=== PATIENT | male | born 1960 | race Caucasian/White ===

== ENCOUNTER 2020-09-09 11:58 | Emergency (ER) | payer OTHER ==
[2020-09-09] MEDS ORDERED: DEXAMETHASONE SOD PHOSPHATE 10 MG/ML 1 ML VIAL IM STA (12:56)
[2020-09-09] MEDS ORDERED: ACETAMINOPHEN TAB 500 MG TAB PO STA (12:56)
[2020-09-09] MEDS ORDERED: IBUPROFEN 800 MG TAB PO STA (12:56)
[2020-09-09] MEDS ORDERED: IPRATROPIUM-ALBUTEROL 3 ML NEB INHALATION STA (12:56)
--- NOTE | 2020-09-09 13:09 | ED ---
URI HPI - General Chief Complaint: Upper Respiratory Infection Stated Complaint: bronchitis Time Seen by Provider: 09/09/20 12:19 Source: patient, RN notes reviewed, old records reviewed Mode of arrival: ambulatory Limitations: no limitations - History of Present Illness Initial Comments: This is a 60-year-old male to the ER for evaluation patient to DF for evaluation regards to cough or congestion with history of smoking. Patient states he gets he symptoms about once a year that is similar to his normal. About a day and a half of cough congestion or shortness of breath no fevers no sick contacts no travel history. No history of heart disease no recent consultations. Patient denies any pain at all. Patient's coughing up phlegm, not discolored MD Complaint: cough -: days(s) Severity: mild Severity scale (1-10): 2 Consistency: intermittent Improves With: nothing Worsens With: nothing Context: sick contacts Associated Symptoms: denies other symptoms - Related Data Home Medications Medication Instructions Recorded Confirmed Aspirin 81 mg PO DAILY 10/02/15 10/02/15 Previous Rx's Medication Instructions Recorded Cephalexin [Keflex] 250 mg PO Q6HR 5 Days day 10/02/15 Allergies Allergy/AdvReac Type Severity Reaction Status Date / Time Penicillins Allergy Rash/Hives Verified 09/09/20 12:16 Review of Systems ROS Statement: Those systems with pertinent positive or pertinent negative responses have been documented in the HPI. ROS Other: All systems not noted in ROS Statement are negative. Past Medical History Past Medical History: Cancer, Hypertension Additional Past Medical History / Comment(s): cellulitis History of Any Multi-Drug Resistant Organisms: None Reported Past Surgical History: Hernia Repair Past Psychological History: No Psychological Hx Reported Smoking Status: Current every day smoker Past Alcohol Use History: Rare Past Drug Use History: None Reported General Exam Limitations: no limitations General appearance: alert, in no apparent distress Head exam: Present: atraumatic, normocephalic, normal inspection Eye exam: Present: normal appearance, PERRL, EOMI. Absent: scleral icterus, conjunctival injection, periorbital swelling ENT exam: Present: normal exam, mucous membranes moist Neck exam: Present: normal inspection. Absent: tenderness, meningismus, lymphadenopathy Respiratory exam: Present: normal lung sounds bilaterally. Absent: respiratory distress, wheezes, rales, rhonchi, stridor Cardiovascular Exam: Present: regular rate, normal rhythm, normal heart sounds. Absent: systolic murmur, diastolic murmur, rubs, gallop, clicks GI/Abdominal exam: Present: soft, normal bowel sounds. Absent: distended, tenderness, guarding, rebound, rigid Extremities exam: Present: normal inspection, full ROM, normal capillary refill. Absent: tenderness, pedal edema, joint swelling, calf tenderness Back exam: Present: normal inspection Neurological exam: Present: alert, oriented X3, CN II-XII intact Psychiatric exam: Present: normal affect, normal mood Skin exam: Present: warm, dry, intact, normal color. Absent: rash Course Vital Signs 09/09/20 12:13 Temperature 98.7 F Pulse Rate 81 Respiratory 20 Rate Blood Pressure 133/72 O2 Sat by Pulse 97 Oximetry - Reevaluation(s) Reevaluation #1: 09/09/20 13:17 Medical records reviewed Reevaluation #2: 09/09/20 13:17 Patient does feel significantly improved here in the ER Reevaluation #3: 09/09/20 14:12 Patient refuses breathing treatment here in the ER Reevaluation #4: 09/09/20 14:12 Patient informed of findings, questions answered, can be discharged home Medical Decision Making - Medical Decision Making 60 male DF for evaluation patient Dese for evaluation regards to cough and congestion some chills. Patient does have pneumonia on x-ray we'll discharge home - Radiology Data Radiology results: report reviewed (Chest x-rays negative for acute disease), image reviewed Disposition Clinical Impression: Acute bronchitis, Community acquired pneumonia Disposition: ADMITTED IP TO THIS HOSP Condition: Fair Is patient prescribed a controlled substance at d/c from ED?: No Referrals: Archana Bonilla MD [Primary Care Provider] - 1-2 days
--- NOTE | 2020-09-09 13:48 | XR ---
EXAMINATION TYPE: XR chest 2V DATE OF EXAM: 09/09/2020 COMPARISON: 04/07/2014 TECHNIQUE: PA and lateral views submitted. HISTORY: Cough FINDINGS: The lungs are clear and there is no pneumothorax, pleural effusion, or focal pneumonia. Coarsened i nterstitium. Heart size normal. Hypertrophic change of the spine. IMPRESSION: 1. Correlate for bronchitis or interstitial pneumonitis..
[2020-09-09] MEDS ORDERED: cefTRIAXone 250 MG VIAL IM STA (14:11)
[2020-09-09] MEDS ORDERED: AZITHROMYCIN 500 MG TAB PO STA (14:11)
[2020-09-09 14:56] VITALS: BP 136/75; PULSE 63; RESP 18; TEMP 99.7
== END 2020-09-09 14:57 | disposition other institution (70) ==
LOC: EC 11:58
DX: J20.9 Acute bronchitis, unspecified (principal); J18.9 Pneumonia, unspecified organism; F17.200 Nicotine dependence, unspecified, uncomplicated; Z79.82 Long term (current) use of aspirin; Z88.0 Allergy status to penicillin; Z85.9 Personal history of malignant neoplasm, unspecified
CPT/HCPCS: 71046; 99284; 96372 ×2; J1100; J0696

== ENCOUNTER 2021-02-19 15:21 | Emergency (ER) | payer OTHER ==
[2021-02-19 16:45] VITALS: BP 150/80; PULSE 79; RESP 18; TEMP 98.9
--- NOTE | 2021-02-19 16:49 | ED ---
URI HPI - General Chief Complaint: Upper Respiratory Infection Stated Complaint: body aches,cough Source: patient, RN notes reviewed Mode of arrival: ambulatory Limitations: no limitations - History of Present Illness Initial Comments: 60-year-old male presents emergency department with generalized muscle aches, runny nose, cough. Patient does note that he is a smoker. He did note that his tested positive for Covid last night so he came to get tested here today. He denied any other complaints or issues or pain she denied any chest pain shortness of breath headache nausea vomiting diarrhea constipation fever fatigue chills - Related Data Home Medications Medication Instructions Recorded Confirmed Aspirin 81 mg PO DAILY 10/02/15 10/02/15 Previous Rx's Medication Instructions Recorded Cephalexin [Keflex] 250 mg PO Q6HR 5 Days day 10/02/15 Albuterol Sulfate [Proair Hfa] 1 - 2 puff INHALATION Q4H PRN #1 09/09/20 inhaler Azithromycin [Zithromax Z-pack (6 0 mg PO DIRECTED #1 pack 09/09/20 tabs)] predniSONE 50 mg PO DAILY #5 tab 09/09/20 Allergies Allergy/AdvReac Type Severity Reaction Status Date / Time Penicillins Allergy Rash/Hives Verified 09/09/20 12:16 Review of Systems ROS Statement: Those systems with pertinent positive or pertinent negative responses have been documented in the HPI. ROS Other: All systems not noted in ROS Statement are negative. Past Medical History Past Medical History: Cancer, Hypertension Additional Past Medical History / Comment(s): cellulitis History of Any Multi-Drug Resistant Organisms: None Reported Past Surgical History: Hernia Repair Past Psychological History: No Psychological Hx Reported Smoking Status: Current every day smoker Past Alcohol Use History: Rare Past Drug Use History: None Reported General Exam Limitations: no limitations General appearance: alert, in no apparent distress Head exam: Present: atraumatic, normocephalic, normal inspection Eye exam: Present: normal appearance, PERRL, EOMI. Absent: scleral icterus, conjunctival injection, periorbital swelling Neck exam: Present: normal inspection. Absent: tenderness, meningismus, lymphadenopathy Respiratory exam: Present: normal lung sounds bilaterally, wheezes (Minimal w heezing and right upper lobe.). Absent: respiratory distress, rales, rhonchi, stridor Cardiovascular Exam: Present: regular rate, normal rhythm, normal heart sounds. Absent: systolic murmur, diastolic murmur, rubs, gallop, clicks GI/Abdominal exam: Present: soft, normal bowel sounds. Absent: distended, tenderness, guarding, rebound, rigid Extremities exam: Present: normal inspection, full ROM, normal capillary refill. Absent: tenderness, pedal edema, joint swelling, calf tenderness Neurological exam: Present: alert, oriented X3, CN II-XII intact Psychiatric exam: Present: normal affect, normal mood Skin exam: Present: warm, dry, intact, normal color. Absent: rash Course Vital Signs 02/19/21 16:40 Temperature 98.9 F Pulse Rate 79 Respiratory 18 Rate Blood Pressure 150/80 O2 Sat by Pulse 99 Oximetry Medical Decision Making - Medical Decision Making [id number] male with exposure to Covid. Chest x-ray and Covid swab ordered. Chest x-ray negative, Covid negative. Case discussed with Dr. Bingham patient to discharge home. - Lab Data Lab Results 02/19/21 Range/Units 16:48 Coronavirus (PCR) Detected A (Not Detectd) - Radiology Data Radiology results: report reviewed, image reviewed Chest x-ray: No acute cardiopulmonary process. Disposition Clinical Impression: Exposure to COVID-19 virus Disposition: HOME SELF-CARE Condition: Stable Instructions (If sedation given, give patient instructions): Upper Respiratory Infection (ED) Additional Instructions: Please return to the Emergency Department if symptoms worsen or any other concerns. Follow-up primary care in 3-5 days. Take [id number] anti-inflammatories for any fever in or muscle aches. Can take [id number]-jyhrllv vitamin such as vitamin C and zinc to help boost immune system. Is patient prescribed a controlled substance at d/c from ED?: No Referrals: Archana Bonilla MD [Primary Care Provider] - 1-2 days Time of Disposition: 18:17
--- NOTE | 2021-02-19 18:02 | XR ---
EXAMINATION TYPE: XR chest 2V DATE OF EXAM: 02/19/2021 COMPARISON: 09/09/2020 HISTORY: Cough and runny nose. Body aches. TECHNIQUE: 2 views FINDINGS: Heart is normal. Lungs are clear of infiltrate. There is no heart failure. There are no hil ar masses. Costophrenic angles are clear. Bony thorax is intact. IMPRESSION: No active cardiopulmonary disease. No change.
== END 2021-02-19 18:29 | disposition home or self-care (01) ==
LOC: EC 15:21
DX: U07.1 COVID-19 (principal); I10 Essential (primary) hypertension; F17.200 Nicotine dependence, unspecified, uncomplicated; Z88.0 Allergy status to penicillin; Z79.82 Long term (current) use of aspirin
CPT/HCPCS: 71046; 87635; 99283

== ENCOUNTER 2021-05-25 14:37 | Observation (INO) | payer OTHER ==
[2021-05-25] MEDS ORDERED: DILTIAZEM DRIP BOLUS FROM BAG 1 MG SOLN IV ONE (14:51)
--- NOTE | 2021-05-25 14:55 | ED ---
General Adult HPI - General Chief complaint: Arrhythmia/Palpitations Stated complaint: high heart rate Time Seen by Provider: 05/25/21 14:38 Source: patient, EMS, RN notes reviewed Mode of arrival: EMS Limitations: no limitations - History of Present Illness Initial comments: Patient is a pleasant 60-year-old male presenting to the emergency department with concerns for atrial fibrillation. Patient has been having some exertional dyspnea. Patient went to urgent care and was found to be tachycardic with concern for a 2 fibrillation. Patient denies history of similar symptoms previously. Patient states he has not seen his doctor in a while. Patient denies chest pain. No palpitations. No history of similar symptoms previously. - Related Data Home Medications Medication Instructions Recorded Confirmed Acetaminophen Tab [Tylenol Tab] 500 mg PO Q6H PRN 05/25/21 05/25/21 Allergies Allergy/AdvReac Type Severity Reaction Status Date / Time Penicillins Allergy Rash/Hives Verified 05/25/21 15:34 tramadol AdvReac Unknown Verified 05/25/21 15:34 Review of Systems ROS Statement: Those systems with pertinent positive or pertinent negative responses have been documented in the HPI. ROS Other: All systems not noted in ROS Statement are negative. Constitutional: Denies: fever Eyes: Denies: eye pain ENT: Denies: ear pain Respiratory: Reports: as per HPI, cough, dyspnea (With exertion) Cardiovascular: Denies: chest pain Endocrine: Reports: fatigue Gastrointestinal: Denies: abdominal pain Genitourinary: Denies: dysuria Musculoskeletal: Denies: back pain Skin: Denies: rash Neurological: Denies: weakness Past Medical History Past Medical History: Cancer, Hypertension Additional Past Medical History / Comment(s): cellulitis History of Any Multi-Drug Resistant Organisms: None Reported Past Surgical History: Hernia Repair Past Psychological History: No Psychological Hx Reported Smoking Status: Current every day smoker Past Alcohol Use History: Rare Past Drug Use History: None Reported General Exam Limitations: no limitations General appearance: alert, in no apparent distress Head exam: Present: normocephalic Eye exam: Present: normal appearance Neck exam: Present: normal inspection Respiratory exam: Present: normal lung sounds bilaterally Cardiovascular Exam: Present: tachycardia, irregular rhythm Expanded Peripheral pulses: 2+: Radial (R), Radial (L) GI/Abdominal exam: Present: soft. Absent: tenderness Extremities exam: Present: pedal edema. Absent: calf tenderness Neurological exam: Present: alert Psychiatric exam: Present: normal affect, normal mood Skin exam: Present: normal color Course Vital Signs 05/25/21 14:41 Temperature 99.2 F Pulse Rate 168 H Respiratory 19 Rate Blood Pressure 117/92 O2 Sat by Pulse 97 Oximetry EKG Findings - EKG Comments: EKG Findings:: A. fib with rate of 142. QRS 84. QT 302. QTC 464. Left axis. Normal QRS. Nonspecific ST-T. Medical Decision Making - Medical Decision Making Patient reevaluated and resting comfortably in bed. Heart rate remains 110 through 125) Cardizem drip. Patient placed on monitor secondary to atrophic relation to watch for arrhythmia. Patient and family updated on results and plan. Case was discussed in detail with Dr. Arriaga, covering Dr. Shin, who will admit. - Lab Data Result diagrams: 05/25/21 15:09 05/25/21 15:09 Lab Results 05/25/21 05/25/21 05/25/21 Range/Units 15:09 15:09 15:09 WBC 17.9 H (3.8-10.6) k/uL RBC 5.17 (4.30-5.90) m/uL Hgb 15.2 (13.0-17.5) gm/dL Hct 44.7 (39.0-53.0) % MCV 86.4 (80.0-100.0) fL MCH 29.4 (25.0-35.0) pg MCHC 34.1 (31.0-37.0) g/dL RDW 14.3 (11.5-15.5) % Plt Count 154 (150-450) k/uL MPV 7.3 Neutrophils % 21 % Lymphocytes % 71 % Monocytes % 3 % Eosinophils % 2 % Basophils % 1 % Neutrophils # 3.7 (1.3-7.7) k/uL Lymphocytes # 12.7 H (1.0-4.8) k/uL Monocytes # 0.6 (0-1.0) k/uL Eosinophils # 0.4 (0-0.7) k/uL Basophils # 0.1 (0-0.2) k/uL Manual Slide Review Performed RBC Morphology Normal PT 10.2 (9.0-12.0) sec INR 0.9 (<1.2) APTT 22.3 (22.0-30.0) sec Sodium 141 (137-145) mmol/L Potassium 4.6 (3.5-5.1) mmol/L Chloride 110 H (98-107) mmol/L Carbon Dioxide 23 (22-30) mmol/L Anion Gap 8 mmol/L BUN 23 H (9-20) mg/dL Creatinine 1.13 (0.66-1.25) mg/dL Est GFR (CKD-EPI)AfAm 82 (>60 ml/min/1.73 sqM) Est GFR (CKD-EPI)NonAf 71 (>60 ml/min/1.73 sqM) Glucose 117 H (74-99) mg/dL Calcium 9.8 (8.4-10.2) mg/dL Magnesium 2.0 (1.6-2.3) mg/dL Total Bilirubin 0.3 (0.2-1.3) mg/dL AST 21 (17-59) U/L ALT 15 (4-49) U/L Alkaline Phosphatase 68 (38-126) U/L Troponin I (0.000-0.034) ng/mL NT-Pro-B Natriuret Pep pg/mL Total Protein 6.8 (6.3-8.2) g/dL Albumin 4.3 (3.5-5.0) g/dL TSH 1.300 (0.465-4.680) mIU/L Free T4 0.79 (0.78-2.19) ng/dL Free T3 pg/mL 4.5 (2.8-5.3) pg/ml Coronavirus (PCR) (Not Detectd) 05/25/21 05/25/21 05/25/21 Range/Units 15:09 15:09 15:09 WBC (3.8-10.6) k/uL RBC (4.30-5.90) m/uL Hgb (13.0-17.5) gm/dL Hct (39.0-53.0) % MCV (80.0-100.0) fL MCH (25.0-35.0) pg MCHC (31.0-37.0) g/dL RDW (11.5-15.5) % Plt Count (150-450) k/uL MPV Neutrophils % % Lymphocytes % % Monocytes % % Eosinophils % % Basophils % % Neutrophils # (1.3-7.7) k/uL Lymphocytes # (1.0-4.8) k/uL Monocytes # (0-1.0) k/uL Eosinophils # (0-0.7) k/uL Basophils # (0-0.2) k/uL Manual Slide Review RBC Morphology PT (9.0-12.0) sec INR (<1.2) APTT (22.0-30.0) sec Sodium (137-145) mmol/L Potassium (3.5-5.1) mmol/L Chloride (98-107) mmol/L Carbon Dioxide (22-30) mmol/L Anion Gap mmol/L BUN (9-20) mg/dL Creatinine (0.66-1.25) mg/dL Est GFR (CKD-EPI)AfAm (>60 ml/min/1.73 sqM) Est GFR (CKD-EPI)NonAf (>60 ml/min/1.73 sqM) Glucose (74-99) mg/dL Calcium (8.4-10.2) mg/dL Magnesium (1.6-2.3) mg/dL Total Bilirubin (0.2-1.3) mg/dL AST (17-59) U/L ALT (4-49) U/L Alkaline Phosphatase (38-126) U/L Troponin I <0.012 (0.000-0.034) ng/mL NT-Pro-B Natriuret Pep 779 pg/mL Total Protein (6.3-8.2) g/dL Albumin (3.5-5.0) g/dL TSH (0.465-4.680) mIU/L Free T4 (0.78-2.19) ng/dL Free T3 pg/mL (2.8-5.3) pg/ml Coronavirus (PCR) Not Detected (Not Detectd) - Radiology Data Radiology results: image reviewed (Chest x-ray shows no acute process) Critical Care Time Critical Care Time: Yes Total Critical Care Time: 33 Disposition Clinical Impression: Atrial fibrillation with RVR Disposition: ADMITTED IP TO THIS HOSP Is patient prescribed a controlled substance at d/c from ED?: No Referrals: Archana Bonilla MD [Primary Care Provider] - 1-2 days Decision Time: 16:18
[2021-05-25] MEDS: DILTIAZEM 125 MG in SODIUM CHLORIDE 0.9% 100 ML IV SCH (15:15)
[2021-05-25 15:27] LABS: Basophils # (A) 0.1 k/uL (0-0.2); Basophils % (A) 1 %; Eosinophils # (A) 0.4 k/uL (0-0.7); Eosinophils % (A) 2 %; HCT 44.7 % (39.0-53.0); HGB 15.2 gm/dL (13.0-17.5); Lymphocytes # (A) 12.7 k/uL (1.0-4.8); Lymphocytes % (A) 71 %; MCH 29.4 pg (25.0-35.0); MCHC 34.1 g/dL (31.0-37.0); MCV 86.4 fL (80.0-100.0); Mean Platelet Volume 7.3; Monocytes # (A) 0.6 k/uL (0-1.0); Monocytes % (A) 3 %; Neutrophils # (A) 3.7 k/uL (1.3-7.7); Neutrophils % (A) 21 %; Platelet Count 154 k/uL (150-450); RBC 5.17 m/uL (4.30-5.90); RDW 14.3 % (11.5-15.5); WBC 17.9 k/uL (3.8-10.6)
[2021-05-25 15:35] LABS: Albumin 4.3 g/dL (3.5-5.0); Calcium 9.8 mg/dL (8.4-10.2); Potassium 4.6 mmol/L (3.5-5.1); Total Bilirubin 0.3 mg/dL (0.2-1.3); Total Protein 6.8 g/dL (6.3-8.2)
[2021-05-25 15:52] LABS: INR 0.9 (<1.2); Prothrombin Time 10.2 sec (9.0-12.0); T4, Free (Free Thyroxine) 0.79 ng/dL (0.78-2.19)
[2021-05-25 15:59] LABS: Partial Thromboplastin Time 22.3 sec (22.0-30.0)
--- NOTE | 2021-05-25 15:59 | XR ---
EXAMINATION TYPE: XR chest 2V DATE OF EXAM: 05/25/2021 COMPARISON: 02/19/2021 HISTORY: Shortness of breath TECHNIQUE: Frontal and lateral views of the chest are obtained. FINDINGS: Scattered senescent parenchymal changes noted. Hyperinflation compatible with COPD. No evidence for infiltrate. No evidence for atelectasis. Heart size is stable. Mediastinal structures are stable and grossly unremarkable. No evidence for hilar prominence. Degenerative changes dorsal spine. IMPRESSION: 1. No evidence for acute pulmonary disease.
[2021-05-25] MEDS ORDERED: ASPIRIN 81 MG PO STA (16:19)
[2021-05-25] MEDS ORDERED: HEPARIN SODIUM 1,000 UN/ML (10ML VL) IV ONE (16:19)
[2021-05-25] MEDS ORDERED: NITROGLYCERIN SL TABS 0.4 MG TAB SUBLINGUAL PRN (16:19)
[2021-05-25] MEDS: HEPARIN SOD,PORK IN 0.45% NACL 25,000 UNIT in 0.45% NACL 1 250ML.BAG IV SCH (17:37)
[2021-05-25 18:36] VITALS: RESP 18
[2021-05-25] MEDS ORDERED: ACETAMINOPHEN TAB 325 MG TAB PO PRN (21:35)
--- NOTE | 2021-05-26 | P.HPIM ---
History of Present Illness H&P Date: 05/25/21 Chief Complaint: Atrial fibrillation, Sent from urgent care clinic. Patient is a 60-year-old male with a known history of hypertension was sent to hospital from urgent care facility due to concern for atrial fibrillation. Patient and his went to urgent care facility to test for COVID-19 infection. Both had COVID-19 infection in January 2021 and went to recheck to make sure it is negative. Patient was found to be tachycardic while he was at urgent care facility and concern for atrial fibrillation. Patient was sent to ER for evaluation. Patient states that he has been having exertional dyspnea for the past 1 month. Also has been having on and off leg swelling. No complaints of chest pain or palpitations. No headache or dizziness or lightheadedness. No fever no chills. No cough or sputum production. No nausea vomiting or abdominal pain or diarrhea. No prior history of coronary disease. Chest x-ray showed no evidence for acute pulmonary disease. EKG showed atrial fibrillation with rapid regular rate with heart rate 142 Laboratory data showed WBC 17.9 hemoglobin 15.1 platelets 154 BUN 23 and creatinine 1.13 blood sugar is 117 Troponin x3 - proBNP 779 TSH level is 1.30 Coronavirus PCR not detected. Review of Systems Constitutional: Patient denies any fever or chills . generalized weakness. Abdomen: Patient denied nausea vomiting and diarrhea and abdominal pain. Cardiovascular: Patient denies any chest pain or short of breath no palpitations.Exertional dyspnea. Leg swelling on and off. Respiratory: patient denied any cough or sputum production. No shortness of breath Neurologic: Patient denied any numbness or tingling headache. Musculoskeletal: Patient denies any complaints of joint swelling or deformity. Skin: Negative Psychiatric: Negative Endocrine: No heat or cold intolerance. No recent weight gain. Genitourinary: No dysuria or hematuria. All other 14 point ROS negative except the above Past Medical History Past Medical History: Cancer, Hypertension Additional Past Medical History / Comment(s): cellulitis History of Any Multi-Drug Resistant Organisms: None Reported Past Surgical History: Hernia Repair Past Anesthesia/Blood Transfusion Reactions: No Reported Reaction Past Psychological History: No Psychological Hx Reported Smoking Status: Current every day smoker Past Alcohol Use History: Rare Past Drug Use History: None Reported Medications and Allergies Home Medications Medication Instructions Recorded Confirmed Type Acetaminophen Tab [Tylenol Tab] 500 mg PO Q6H PRN 05/25/21 05/25/21 History Allergies Allergy/AdvReac Type Severity Reaction Status Date / Time Penicillins Allergy Rash/Hives Verified 05/25/21 15:34 tramadol AdvReac Unknown Verified 05/25/21 15:34 Physical Exam Vitals: Vital Signs Temp Pulse Pulse Resp BP BP Pulse Ox 05/25/21 18:35 98.6 F 150 H 18 122/66 96 05/25/21 16:26 122 H 17 133/83 97 05/25/21 14:52 125 H 168 H 18 120/76 97 05/25/21 14:41 99.2 F 168 H 19 117/92 97 Intake and Output 05/25/21 05/25/21 05/25/21 06:59 14:59 22:59 Other: Weight 124.738 kg 124.738 kg PHYSICAL EXAMINATION: Patient is lying in the bed comfortably, no acute distress, awake alert and oriented.. HEENT: Normocephalic. Neck is supple. Pupils reactive. Nostrils clear. Oral cavity is moist. Neck reveals no JVD, carotid bruits, or thyromegaly. CHEST EXAMINATION: Trachea is central. Symmetrical expansion. Lung yanez clear to auscultation and percussion. CARDIAC: Normal S1, S2 with no gallops. No murmurs . irregular rhythm ABDOMEN: Soft. Bowel sounds normal. No organomegaly. No abdominal bruits. Extremities: trace edema. No clubbing or cyanosis Neurologically awake, alert, oriented x3 with well-coordinated movements. No focal deficits noted Skin: No rash or skin lesions. Psychiatric: Coperative. Nonsuicidal Musculoskeletal: No joint swelling or deformity. Normal range of motion. Results CBC & Chem 7: 05/25/21 15:09 05/25/21 15:09 Labs: Abnormal Lab Results - Last 24 Hours (Table) 05/25/21 05/25/21 Range/Units 15:09 15:09 WBC 17.9 H (3.8-10.6) k/uL Lymphocytes # 12.7 H (1.0-4.8) k/uL Chloride 110 H (98-107) mmol/L BUN 23 H (9-20) mg/dL Glucose 117 H (74-99) mg/dL Thrombosis Risk Factor Assmnt - DVT/VTE Prophylaxis DVT/VTE Prophylaxis: Pharmacologic Prophylaxis ordered - Choose All That Apply Each Factor Represents 1 point: Age 41-60 years, Obesity (BMI >25) Other Risk Factors: No Other congenital or acquired thrombophilia - If yes, enter type in comment: No Thrombosis Risk Factor Assessment Total Risk Factor Score: 2 Thrombosis Risk Factor Assessment Level: Low Risk Assessment and Plan Assessment: New onset atrial fibrillation with rapid lower rate Leukocytosis likely reactive. Hypertension controlled. Currently everyday smoker Recent history of COVID-19 infection in January 2021 Obesity with BMI 36.3 DVT prophylaxis. Plan: Patient will be continued on telemetry monitoring. Started on Cardizem drip and heparin drip. Cardiology was consulted. Rule out infection due to elevated WBC count. Continue to follow closely. Smoking cessation has been counseled. Time with Patient: Greater than 30
[2021-05-26 03:18] LABS: Basophils # (A) 0.1 k/uL (0-0.2); Basophils % (A) 1 %; Eosinophils # (A) 0.4 k/uL (0-0.7); Eosinophils % (A) 2 %; HCT 45.4 % (39.0-53.0); HGB 15.2 gm/dL (13.0-17.5); Lymphocytes % (A) 74 %; MCH 29.2 pg (25.0-35.0); MCHC 33.5 g/dL (31.0-37.0); MCV 87.2 fL (80.0-100.0); Mean Platelet Volume 7.2; Monocytes # (A) 0.6 k/uL (0-1.0); Monocytes % (A) 3 %; Neutrophils # (A) 3.7 k/uL (1.3-7.7); Neutrophils % (A) 18 %; Platelet Count 155 k/uL (150-450); RDW 14.8 % (11.5-15.5); WBC 20.7 k/uL (3.8-10.6)
[2021-05-26 03:24] LABS: Lymphocytes # (A) 15.3 k/uL (1.0-4.8)
[2021-05-26 03:29] LABS: African American GFR (CKD) >90 (>60 ml/min/1.73 sqM); Anion Gap 9 mmol/L; Blood Urea Nitrogen 20 mg/dL (9-20); Calcium 9.6 mg/dL (8.4-10.2); Carbon Dioxide 22 mmol/L (22-30); Chloride 109 mmol/L (98-107); Glucose 110 mg/dL (74-99); Non-African American GFR(CKD) 84 (>60 ml/min/1.73 sqM); Potassium 4.4 mmol/L (3.5-5.1); Sodium 140 mmol/L (137-145)
[2021-05-26] MEDS: ASPIRIN 325 MG TAB PO SCH (07:42)
[2021-05-26 10:17] LABS: Chol/HDL Ratio 5.35; Cholesterol 182 mg/dL (0-200)
[2021-05-26 12:35] LABS: Appearance,Urine Clear (Clear); Bilirubin,Urine Negative (Negative); Blood,Urine Negative (Negative); Color,Urine Yellow; Glucose,Urine (UA) Negative (Negative); Ketones,Urine Negative (Negative); Leukocyte Esterase,Urine Negative (Negative); Nitrite,Urine Negative (Negative); PH, Urine 5.5 (5.0-8.0); Protein,Urine Negative (Negative); Specific Gravity,Urine 1.031 (1.001-1.035); Urobilinogen,Urine <2.0 mg/dL (<2.0)
--- NOTE | 2021-05-26 12:49 | ECHOF ---
Referral Reason:AFib/ shortness of breath MEASUREMENTS -------- HEIGHT: 185.4 cm WEIGHT: 127.5 kg BP: 120/77 RVIDd: 3.6 cm (< 3.3) IVSd: 1.4 cm (0.6 - 1.1) LVIDd: 4.6 cm (3.9 - 5.3) LVPWd: 1.4 cm (0.6 - 1.1) IVSs: 1.8 cm LVIDs: 4.1 cm LVPWs: 1.6 cm LA Diam: 3.9 cm (2.7 - 3.8) LAESV Index (A-L): 26.99 ml/m Ao Diam: 3.4 cm (2.0 - 3.7) AV Cusp: 2.4 cm (1.5 - 2.6) MV EXCURSION: 19.783 mm (> 18.000) MV EF SLOPE: 123 mm/s (70 - 150) EPSS: 0.9 cm RAP: 5.00 mmHg RVSP: 25.25 mmHg FINDINGS -------- Atrial fibrillation. This was a technically difficult study with suboptimal apical views. The left ventricular size is normal. There is moderate concentric left ventricular hypertrophy. T here is mild global hypokinesis of LV . Overall left ventricular systolic function is mildly impair ed with, an EF between 45 - 50 %. The right ventricle is mildly enlarged. Normal LA size by volume 22+/-6 ml/m2. The right atrial size is normal. Interatrial and interventricular septum intact. The aortic valve is trileaflet, and appears structurally normal. No aortic stenosis or regurgitation. The mitral valve is normal. Mild mitral regurgitation is present. The tricuspid valve appears structurally normal. Mild tricuspid regurgitation present. Right vent ricular systolic pressure is normal at < 35 mmHg. Trace/mild (physiologic) pulmonic regurgitation. The aortic root size is normal. IVC Not well visulized. There is no pericardial effusion. CONCLUSIONS -------- 1. Atrial fibrillation. 2. There is moderate concentric left ventricular hypertrophy. 3. There is mild global hypokinesis of LV . 4. Overall left ventricular systolic function is mildly impaired with, an EF between 45 - 50 %. 5. The right ventricle is mildly enlarged. 6. Normal LA size by volume 22+/-6 ml/m2. 7. The aortic valve is trileaflet, and appears structurally normal. No aortic stenosis or regurgitati on. 8. Mild mitral regurgitation is present. 9. Mild tricuspid regurgitation present. 10. Trace/mild (physiologic) pulmonic regurgitation. 11. There is no pericardial effusion. BUSINESS CONTROLLER: More Evans RDCS
--- NOTE | 2021-05-26 13:53 | P.CRDCN ---
History of Present Illness Consult date: 05/26/21 Consult reason: atrial fibrillation History of present illness: The patient is a 60-year-old male with past medical history of hypertension, who presented to the hospital after being diagnosed with new onset of atrial fibrillation at urgent care. The patient and his presented to urgent care for COVID-19 testing. They state they needed negative test results before returning to work. Vital signs showed an elevated heart rate in the 150s, therefore EKG was performed. EKG showed A. fib with RVR in the 150s. The patient was interviewed and examined lying comfortably in bed. The patient's states he has been more fatigued and short of breath since their COVID-19 infection in the month of January. She states he does have some activity intolerance and if he works out in the yard for more than a half an hour he becomes quite labored. No chest pain or chest pressure. No palpitations, dizziness, or lightheadedness. DIAGNOSTICS: Laboratory data shows WBC 17.9, hemoglobin 15.2, hematocrit 44.7, platelet 154, sodium 141, potassium 4.6, BUN 23, creatinine 1.13, AST 21, ALT 15, troponins negative 3, BNP 779, triglycerides 160, LDL 116, TSH 1.3 Chest x-ray shows no acute cardiopulmonary disease Echocardiogram shows ejection fraction of 45% with global hypokinesis and moderate LVH PAST MEDICAL HISTORY: Hypertension REVIEW OF SYSTEMS: No fever or chills. No cough or expectoration. No diaphoresis. Patient denies headache, dizziness, blurred vision, double vision. Patient denies any stomach discomfort. No nausea, vomiting. No hematochezia. No hematemesis. Denies any black stools or blood in his stools. Denies dysuria or hematuria. No muscle weakness or numbness. No chest pain. Positive for shortness of breath with exertion PHYSICAL EXAMINATION: This is a 60 year-old male in no apparent distress at the time of my examination. HEENT: Head is atraumatic, normocephalic. Pupils are equal, round. Sclerae anicteric. Conjunctivae are clear. Mucous membranes of the mouth are moist. Neck is supple. There is no jugular venous distention. No carotid bruit is heard. CHEST EXAMINATION: Lungs are clear to auscultation. No chest wall tenderness is noted on palpation or with deep breathing. HEART EXAMINATION: Irregular rate and rhythm. S1, S2 heard. No murmurs, gallops or rub. ABDOMEN: Soft, nontender. Bowel sounds are heard. No organomegaly noted. EXTREMITIES: 2+ peripheral pulses. Mild peripheral edema and no calf tenderness noted. NEUROLOGIC EXAMINATION: Patient is awake, alert and oriented x3. FINAL ASSESSMENT AND PLAN: New onset of atrial fibrillation New onset cardiomyopathy, EF 45% with global hypokinesis and moderate LVH Obesity Dyslipidemia PLAN: Start metoprolol 50mg Start Eliquis 5 mg twice daily Start atorvastatin 20mg Wean off of Cardizem drip Reduce ASA to 81mg Further recommendations based on clinical course The patient has been seen and evaluated. Plan of care has been reviewed and agreed upon by Dr Aly. Past Medical History Past Medical History: Cancer, Hypertension Additional Past Medical History / Comment(s): cellulitis History of Any Multi-Drug Resistant Organisms: None Reported Past Surgical History: Hernia Repair Past Anesthesia/Blood Transfusion Reactions: No Reported Reaction Past Psychological History: No Psychological Hx Reported Smoking Status: Current every day smoker Past Alcohol Use History: Rare Past Drug Use History: None Reported Medications and Allergies Home Medications Medication Instructions Recorded Confirmed Type Acetaminophen Tab [Tylenol Tab] 500 mg PO Q6H PRN 05/25/21 05/25/21 History Allergies Allergy/AdvReac Type Severity Reaction Status Date / Time Penicillins Allergy Rash/Hives Verified 05/25/21 15:34 tramadol AdvReac Unknown Verified 05/25/21 15:34 Physical Exam Vitals: Vital Signs Temp Pulse Pulse Resp BP BP Pulse Ox 05/26/21 12:00 97.6 F 104 H 18 110/74 96 05/26/21 08:00 60 05/26/21 07:37 97.9 F 60 18 120/77 95 05/26/21 04:00 97.8 F 80 18 112/64 96 05/26/21 02:00 81 18 05/26/21 00:00 97.8 F 81 18 112/64 98 05/25/21 20:00 97.8 F 96 18 96/65 97 05/25/21 18:35 98.6 F 150 H 18 122/66 96 05/25/21 16:26 122 H 17 133/83 97 05/25/21 14:52 125 H 168 H 18 120/76 97 05/25/21 14:41 99.2 F 168 H 19 117/92 97 Intake and Output 05/25/21 05/26/21 05/26/21 22:59 06:59 14:59 Intake Total 106.276 108.853 Balance 106.276 108.853 Intake: Intake, IV Titration 106.276 108.853 Amount Heparin Sod,Pork in 0.45% 106.276 108.853 NaCl 25,000 unit In 0.45 % NaCl 1 250ml.bag @ 8 UNITS/KG/HR 9.979 mls/hr IV .Q24H [facility] Rx#: [id number] Other: # Voids 1 Weight 124.738 kg 127.9 kg Results 05/26/21 02:56 05/26/21 02:56 Cardiac Enzymes 05/25/21 05/25/21 05/25/21 Range/Units 15:09 15:09 17:54 AST 21 (17-59) U/L Troponin I <0.012 <0.012 (0.000-0.034) ng/mL 05/25/21 Range/Units 21:00 AST (17-59) U/L Troponin I <0.012 (0.000-0.034) ng/mL Coagulation 05/25/21 05/26/21 05/26/21 Range/Units 15:09 02:56 10:25 PT 10.2 (9.0-12.0) sec APTT 22.3 24.5 29.7 (22.0-30.0) sec Lipids 05/26/21 Range/Units 02:56 Triglycerides 160.0 H (0.0-149.0) mg/dL Cholesterol 182 (0-200) mg/dL HDL Cholesterol 34.0 L (40.0-60.0) mg/dL Cholesterol/HDL Ratio 5.35 CBC 05/25/21 05/26/21 Range/Units 15:09 02:56 WBC 17.9 H 20.7 H (3.8-10.6) k/uL RBC 5.17 5.20 (4.30-5.90) m/uL Hgb 15.2 15.2 (13.0-17.5) gm/dL Hct 44.7 45.4 (39.0-53.0) % Plt Count 154 155 (150-450) k/uL Comprehensive Metabolic Panel 05/25/21 05/26/21 Range/Units 15:09 02:56 Sodium 141 140 (137-145) mmol/L Potassium 4.6 4.4 (3.5-5.1) mmol/L Chloride 110 H 109 H (98-107) mmol/L Carbon Dioxide 23 22 (22-30) mmol/L BUN 23 H 20 (9-20) mg/dL Creatinine 1.13 0.98 (0.66-1.25) mg/dL Glucose 117 H 110 H (74-99) mg/dL Calcium 9.8 9.6 (8.4-10.2) mg/dL AST 21 (17-59) U/L ALT 15 (4-49) U/L Alkaline Phosphatase 68 (38-126) U/L Total Protein 6.8 (6.3-8.2) g/dL Albumin 4.3 (3.5-5.0) g/dL Current Medications Generic Name Dose Route Start Last Admin Trade Name Freq PRN Reason Stop Dose Admin Acetaminophen 325 mg 05/25/21 21:35 05/25/21 21:47 Acetaminophen Tab 325 Mg Tab PO 325 mg Q4HR PRN Administration Fever and/ or Pain Aspirin 325 mg 05/26/21 09:00 05/26/21 07:42 Aspirin 325 Mg Tab PO 325 mg DAILY [facility] Administration Diltiazem HCl 125 mg/ Sodium 125 mls @ 5 mls/hr 05/25/21 15:00 05/25/21 15:15 Chloride IV 5 mg/hr .Q24H [facility] 5 mls/hr Administration 5 MG/HR Heparin Sodium/Sodium Chloride 250 mls @ 9.979 mls/hr 05/25/21 16:30 05/26/21 12:12 25,000 unit/ Sodium Chloride IV 14 units/kg/hr .Q24H [facility] 17.463 mls/hr Titration Protocol 8 UNITS/KG/HR Nitroglycerin 0.4 mg 05/25/21 16:19 Nitroglycerin Sl Tabs 0.4 Mg Tab SUBLINGUAL Q5M PRN Chest Pain Sodium Chloride 10 ml 05/25/21 21:00 05/26/21 07:41 Sodium Chloride 0.9% Flush 10 Ml Syringe IV Not Given BID [facility] Intake and Output 05/25/21 05/26/21 05/26/21 22:59 06:59 14:59 Intake Total 106.276 108.853 Balance 106.276 108.853 Intake: Intake, IV Titration 106.276 108.853 Amount Heparin Sod,Pork in 0.45% 106.276 108.853 NaCl 25,000 unit In 0.45 % NaCl 1 250ml.bag @ 8 UNITS/KG/HR 9.979 mls/hr IV .Q24H [facility] Rx#: [id number] Other: # Voids 1 Weight 124.738 kg 127.9 kg 05/26/21 02:56 05/26/21 02:56
[2021-05-26] MEDS: APIXABAN 5 MG TAB PO SCH (16:12)
[2021-05-26] MEDS: HEPARIN SOD,PORK IN 0.45% NACL 25,000 UNIT in 0.45% NACL 1 250ML.BAG IV SCH (17:18)
[2021-05-26] MEDS: DILTIAZEM 125 MG in SODIUM CHLORIDE 0.9% 100 ML IV SCH (17:36)
[2021-05-26] MEDS: METOPROLOL TARTRATE 50 MG TAB PO SCH (20:40)
[2021-05-26] MEDS ORDERED: ATORVASTATIN 20 MG TAB PO SCH (21:00)
[2021-05-27] MEDS ORDERED: ASPIRIN 81 MG PO SCH (09:00)
[2021-05-27] MEDS: METOPROLOL TARTRATE 50 MG TAB PO SCH (09:12)
[2021-05-27] MEDS: APIXABAN 5 MG TAB PO SCH (09:12)
[2021-05-27] MEDS: ASPIRIN 325 MG TAB PO SCH ×2 (09:12→11:40)
--- NOTE | 2021-05-27 10:29 | P.PN ---
Subjective Progress Note Date: 05/26/21 Principal diagnosis: New onset atrial fibrillation with rapid ventricular rate Patient is a 60-year-old male with a known history of hypertension was sent to hospital from urgent care facility due to concern for atrial fibrillation. Patient and his went to urgent care facility to test for COVID-19 infection. Both had COVID-19 infection in January 2021 and went to recheck to make sure it is negative. Patient was found to be tachycardic while he was at urgent care facility and concern for atrial fibrillation. Patient was sent to ER for evaluation. Patient states that he has been having exertional dyspnea for the past 1 month. Also has been having on and off leg swelling. No complaints of chest pain or palpitations. No headache or dizziness or lightheadedness. No fever no chills. No cough or sputum production. No nausea vomiting or abdominal pain or diarrhea. No prior history of coronary disease. Chest x-ray showed no evidence for acute pulmonary disease. EKG showed atrial fibrillation with rapid regular rate with heart rate 142 Laboratory data showed WBC 17.9 hemoglobin 15.1 platelets 154 BUN 23 and creatinine 1.13 blood sugar is 117 Troponin x3 - proBNP 779 TSH level is 1.30 Coronavirus PCR not detected. 05/26/2021 Patient is currently able to family to the bathroom. No complaints of chest pain or shortness of breath. Symptomatically improved. No dizziness or lightheadedness. Patient was started on metoprolol and weaned off Cardizem drip. Anticoagulation with Eliquis is started. Next and 2-D echo cardiac exam showed his infection 45% and global hypokinesis with moderate left ventricle hypertrophy. Cardiology is on board. No cough or sputum production. No abdominal pain or diarrhea. Tolerating oral diet. current medications reviewed. Objective - Vital Signs Vital signs: Vital Signs Temp 97.6 F 05/26/21 12:00 Pulse 104 H 05/26/21 14:00 Resp 18 05/26/21 12:00 BP 110/74 05/26/21 12:00 Pulse Ox 94 L 05/26/21 15:40 Intake & Output 05/25/21 05/26/21 05/26/21 18:59 06:59 18:59 Intake Total 106.276 143.724 Balance 106.276 143.724 Weight 124.738 kg 127.9 kg Intake: Intake, IV Titration 106.276 143.724 Amount Heparin Sod,Pork in 0.45% 106.276 143.724 NaCl 25,000 unit In 0.45 % NaCl 1 250ml.bag @ 8 UNITS/KG/HR 9.979 mls/hr IV .Q24H [facility] Rx#: [id number] Other: # Voids 1 # Bowel Movements 1 - Exam PHYSICAL EXAMINATION: Patient is lying in the bed comfortably, no acute distress, awake alert and oriented.. HEENT: Normocephalic. Neck is supple. Pupils reactive. Nostrils clear. Oral cavity is moist. Neck reveals no JVD, carotid bruits, or thyromegaly. CHEST EXAMINATION: Trachea is central. Symmetrical expansion. Lung yanez clear to auscultation and percussion. CARDIAC: Normal S1, S2 with no gallops. No murmurs ABDOMEN: Soft. Bowel sounds normal. No organomegaly. No abdominal bruits. Extremities: Bilateral trace edema. No clubbing or cyanosis Neurologically awake, alert, oriented x3 with well-coordinated movements. No focal deficits noted Skin: No rash or skin lesions. Psychiatric: Coperative. Nonsuicidal Musculoskeletal: No joint swelling or deformity. Normal range of motion. - Labs CBC & Chem 7: 05/26/21 02:56 05/26/21 02:56 Labs: Abnormal Lab Results - Last 24 Hours (Table) 05/26/21 05/26/21 Range/Units 02:56 02:56 WBC 20.7 H (3.8-10.6) k/uL Lymphocytes # 15.3 H (1.0-4.8) k/uL Chloride 109 H (98-107) mmol/L Glucose 110 H (74-99) mg/dL Triglycerides 160.0 H (0.0-149.0) mg/dL HDL Cholesterol 34.0 L (40.0-60.0) mg/dL Assessment and Plan Assessment: New onset atrial fibrillation with rapid lower rate New onset cardiomyopathy ejection fraction 40% with global hypokinesis and moderate left ventricle hypertrophy Leukocytosis likely reactive. Resolving now. Hypertension controlled. Currently everyday smoker Recent history of COVID-19 infection in January 2021 Obesity with BMI 36.3 DVT prophylaxis. Plan: Patient will be continued on telemetry monitoring. Was on Cardizem drip and heparin drip. Currently started on metoprolol and tapered off Cardizem drip. Cardiology is on board. 2-D echo cardiac exam showed new onset cardiomyopathy. Continue to follow closely. Smoking cessation has been counseled.
[2021-05-27 12:43] LABS: HCT 40.1 % (39.0-53.0); HGB 13.8 gm/dL (13.0-17.5); MCH 30.3 pg (25.0-35.0); MCHC 34.5 g/dL (31.0-37.0); MCV 87.8 fL (80.0-100.0); Platelet Count 157 k/uL (150-450); RBC 4.57 m/uL (4.30-5.90); RDW 14.5 % (11.5-15.5); WBC 14.8 k/uL (3.8-10.6)
--- NOTE | 2021-05-27 12:52 | P.PN ---
Subjective Progress Note Date: 05/27/21 The patient was interviewed and examined lying in bed. He states he is feeling well. He has been up ambulating around his room, however he has yet to walk the halls. No chest pain or chest pressure. No dyspnea, orthopnea, palpitations, dizziness, lightheadedness. GENERAL: Well-appearing obest male, well-nourished and in no acute distress. NECK: Supple without JVD or thyromegaly. LUNGS: Breath sounds clear to auscultation bilaterally. Respiration equal and unlabored. No wheezes, rales or rhonchi. HEART: Regular rate and rhythm without murmurs, rubs or gallops. S1 and S2 heard. EXTREMITIES: Normal range of motion, no edema. No clubbing or cyanosis. Peripheral pulses intact and strong. VITALS: Blood pressure 126/69, pulse rate 76, respiratory rate 18, SpO2 96% on room air TELEMETRY: Sinus rhythm with heart rate in the 60s IMPRESSION: New onset of A. fib New-onset cardiomyopathy, EF 45% with global hypokinesis and moderate LVH Obesity Dyslipidemia PLAN: Continue current medication regimen Discharge on metoprolol, Eliquis, and statin Follow-up in office with Dr. Aly in 2 weeks The patient has been seen and evaluated. Plan of care has been reviewed and agreed upon by Dr Aly. Objective - Vital Signs Vital signs: Vital Signs Temp 97.8 F 05/26/21 20:00 Pulse 76 05/27/21 04:00 Resp 18 05/27/21 04:00 BP 126/69 05/27/21 04:00 Pulse Ox 96 05/27/21 04:00 Intake & Output 05/26/21 05/27/21 05/27/21 18:59 06:59 18:59 Intake Total 417.860 0281 Output Total 300 Balance 383.724 785 Weight 129.4 kg Intake: Intake, IV Titration 143.724 125 Amount Diltiazem 125 mg In 125 Sodium Chloride 0.9% 100 ml @ 5 MG/HR 5 mls/hr IV .Q24H [facility] Rx#:[id number] Heparin Sod,Pork in 0.45% 143.724 NaCl 25,000 unit In 0.45 % NaCl 1 250ml.bag @ 8 UNITS/KG/HR 9.979 mls/hr IV .Q24H [facility] Rx#: [id number] Oral 240 960 Output: Urine 300 Other: Voiding Method Toilet # Voids 1 # Bowel Movements 1 1 - Labs CBC & Chem 7: 05/26/21 02:56 05/26/21 02:56
[2021-05-27 14:27] LABS: Lymphocytes # (M) 11.54 k/uL (1.0-4.8); Monocytes # (M) 0.74 k/uL (0-1.0); Neutrophils # (M) 2.37 k/uL (1.3-7.7); Neutrophils % (M) 16 %; Nucleated Red Blood Cells 0 /100 WBC (0-0); Total Cells Counted 200
[2021-05-27 14:50] VITALS: TEMP 98.2
[2021-05-27 14:56] VITALS: BP 113/60; PULSE 74
--- NOTE | 2021-06-01 17:34 | P.DS ---
Providers Date of admission: 05/25/21 16:19 Expected date of discharge: 05/27/21 Attending physician: Tra Arriaga Consults: 05/25/21 16:19 Consult Physician Urgent Consulting Provider: Georgette Montalvo Consult Reason/Comments: a fib w rvr Do you want consulting provider notified?: Yes Primary care physician: Irene Magaña Hospital Course: Discharge diagnosis New onset atrial fibrillation with rapid lower rate. Rate controlled. Maintaining in sinus rhythm. New onset cardiomyopathy ejection fraction 40% with global hypokinesis and moderate left ventricle hypertrophy Leukocytosis likely reactive. Resolved. Hypertension controlled. Currently everyday smoker Recent history of COVID-19 infection in January 2021 Obesity with BMI 36.3 DVT prophylaxis. Hospital course Patient is a 60-year-old male with a known history of hypertension was sent to hospital from urgent care facility due to concern for atrial fibrillation. Patient and his went to urgent care facility to test for COVID-19 infection. Both had COVID-19 infection in January 2021 and went to recheck to make sure it is negative. Patient was found to be tachycardic while he was at urgent care facility and concern for atrial fibrillation. Patient was sent to ER for evaluation. Patient states that he has been having exertional dyspnea for the past 1 month. Also has been having on and off leg swelling. No complaints of chest pain or palpitations. No headache or dizziness or lightheadedness. No fever no chills. No cough or sputum production. No nausea vomiting or abdominal pain or diarrhea. No prior history of coronary disease. Chest x-ray showed no evidence for acute pulmonary disease. EKG showed atrial fibrillation with rapid regular rate with heart rate 142 Laboratory data showed WBC 17.9 hemoglobin 15.1 platelets 154 BUN 23 and creatinine 1.13 blood sugar is 117 Troponin x3 - proBNP 779 TSH level is 1.30 Coronavirus PCR not detected. 05/26/2021 Patient is currently able to family to the bathroom. No complaints of chest pain or shortness of breath. Symptomatically improved. No dizziness or lightheadedness. Patient was started on metoprolol and weaned off Cardizem drip . Anticoagulation with Eliquis is started. Next and 2-D echo cardiac exam showed his infection 45% and global hypokinesis with moderate left ventricle hypertrophy. Cardiology is on board. No cough or sputum production. No abdominal pain or diarrhea. Tolerating oral diet. Patient is still having significant leukocytosis with WBC count 20.7. UA will be ordered. Chest x-ray on admission showed no acute process. 05/27/2021 Patient is resting in the bed comfortably. No complaints of chest pain or shortness of. No fever no chills. No palpitations. No headache or dizziness or lightheadedness. Patient is asymptomatic. Maintained in sinus rhythm. 2-D echo cardiac exam showed his ejection fraction 40-45% with new onset cardiomyopathy. Cardiology recommends an outpatient follow-up. Continue with Eliquis and statins. WBC count improved to 14 today. No evidence of infection. Patient is recommended to be discharged home. PHYSICAL EXAMINATION: Patient is lying in the bed comfortably, no acute distress, awake alert and oriented.. HEENT: Normocephalic. Neck is supple. Pupils reactive. Nostrils clear. Oral cavity is moist. Neck reveals no JVD, carotid bruits, or thyromegaly. CHEST EXAMINATION: Trachea is central. Symmetrical expansion. Lung yanez clear to auscultation and percussion. CARDIAC: Normal S1, S2 with no gallops. No murmurs ABDOMEN: Soft. Bowel sounds normal. No organomegaly. No abdominal bruits. Extremities: Bilateral trace edema. No clubbing or cyanosis Neurologically awake, alert, oriented x3 with well-coordinated movements. No focal deficits noted Skin: No rash or skin lesions. Psychiatric: Coperative. Nonsuicidal Musculoskeletal: No joint swelling or deformity. Normal range of motion. Vital signs: Vital Signs Temp 97.8 F 05/26/21 20:00 Pulse 76 05/27/21 04:00 Resp 18 05/27/21 04:00 BP 126/69 05/27/21 04:00 Pulse Ox 96 05/27/21 04:00 Intake & Output 05/26/21 05/27/21 05/27/21 18:59 06:59 18:59 Intake Total 224.071 6503 Output Total 300 Balance 383.724 785 Weight 129.4 kg Intake: Intake, IV Titration 143.724 125 Amount Diltiazem 125 mg In 125 Sodium Chloride 0.9% 100 ml @ 5 MG/HR 5 mls/hr IV .Q24H [facility] Rx#:[id number] Heparin Sod,Pork in 0.45% 143.724 NaCl 25,000 unit In 0.45 % NaCl 1 250ml.bag @ 8 UNITS/KG/HR 9.979 mls/hr IV .Q24H [facility] Rx#: [id number] Oral 240 960 Output: Urine 300 Other: Voiding Method Toilet # Voids 1 # Bowel Movements 1 1 Patient Condition at Discharge: Stable Plan - Discharge Summary Discharge Rx Participant: Yes New Discharge Prescriptions: New Apixaban [Eliquis] 5 mg PO BID #60 tab Aspirin 81 mg PO DAILY #30 chew Atorvastatin [Lipitor] 20 mg PO HS #30 tab Metoprolol Tartrate [Lopressor] 50 mg PO BID #60 tab Continue Acetaminophen Tab [Tylenol] 500 mg PO Q6H PRN PRN Reason: Pain Discharge Medication List Acetaminophen Tab [Tylenol] 500 mg PO Q6H PRN 05/25/21 [History] Apixaban [Eliquis] 5 mg PO BID #60 tab 05/27/21 [Rx] Aspirin 81 mg PO DAILY #30 chew 05/27/21 [Rx] Atorvastatin [Lipitor] 20 mg PO HS #30 tab 05/27/21 [Rx] Metoprolol Tartrate [Lopressor] 50 mg PO BID #60 tab 05/27/21 [Rx] Follow up Appointment(s)/Referral(s): Koffi Aly MD [STAFF PHYSICIAN] - 2 Weeks (Office closed, please call Friday to schedule follow up. ) Archana Bonilla MD [Primary Care Provider] - 1-2 days (Office closed, please call Friday to schedule follow up. ) Patient Instructions/Handouts: A-fib (Atrial Fibrillation) (DC), Safe Use of Anticoagulants (DC) Discharge Disposition: HOME SELF-CARE
== END 2021-05-27 13:31 | disposition home or self-care (01) ==
LOC: EC 14:37 → 3SCARD 16:19 → INTOOBSV 16:19 → UNDODISIN 05-27 13:31
PROVIDERS: ADMIT Internal Medicine; ATTEND Internal Medicine
DX: I48.91 Unspecified atrial fibrillation (principal); I42.9 Cardiomyopathy, unspecified; D72.829 Elevated white blood cell count, unspecified; I10 Essential (primary) hypertension; E66.9 Obesity, unspecified; Z68.36 Body mass index [BMI] 36.0-36.9, adult; Z86.16 Personal history of COVID-19; F17.200 Nicotine dependence, unspecified, uncomplicated; E78.5 Hyperlipidemia, unspecified; Z20.822 Contact with and (suspected) exposure to COVID-19; Z85.9 Personal history of malignant neoplasm, unspecified; Z86.19 Personal history of other infectious and parasitic diseases; Z88.0 Allergy status to penicillin; Z88.5 Allergy status to narcotic agent
CPT/HCPCS: 96366 ×2; 93005 ×2; 96376; 96365; 96375; 99291; 36415; 94760; 84439; 84481; 83880; 80061; 80053; 80048; 83735; 84443; 84484; 85025 ×3; 85610; 85730 ×2; 81003; 87635; 71046; G0378 ×3; C8929; J1644 ×2; Q9950; 93306; 96374

== ENCOUNTER 2022-09-05 16:56 | Emergency (ER) | payer OTHER ==
[2022-09-05 17:10] VITALS: BP 161/98; PULSE 90; RESP 18
--- NOTE | 2022-09-05 17:23 | ED ---
General Adult HPI - General Chief complaint: Recheck/Abnormal Lab/Rx Stated complaint: Afib Time Seen by Provider: 09/05/22 16:59 Source: patient Mode of arrival: ambulatory Limitations: no limitations - History of Present Illness Initial comments: Dictation was produced using [employer] dictation software. please excuse any grammatical, word or spelling errors. Chief Complaint: 62-year-old male past medical history of A. fib brought to the emergency department by EMS for A. fib History of Present Illness: Patient 62-year-old male he went to the walk-in clinic to have his toe checked. He states that several days ago he had his toenails clipped by his significant other. During the toenail clipping there was some drainage coming from the toe. He states that completed resolved. He went to the walk-in clinic to have that checked. He saw a medical provider at one of the local urgent cares will notice that patient was in A. fib. Patient has a history of A. fib. He is on metoprolol and anticoagulation medications. Patient denies any respiratory symptoms. Denies any chest symptoms. No chest pain. Denies any palpitations. Patient feels at baseline.. Patient states he has been suffering from symptoms of URI recently. The ROS documented in this emergency department record has been reviewed and confirmed by me. Those systems with pertinent positive or negative responses have been documented in the HPI. All other systems are other negative and/or noncontributory. PHYSICAL EXAM: General Impression: Alert and oriented x3, not in acute distress HEENT: Normocephalic atraumatic, extra-ocular movements intact, pupils equal and reactive to light bilaterally, mucous membranes moist. Cardiovascular: Heart regular rate and rhythm Chest: Able to complete full sentences, no retractions, no tachypnea, clear to auscultation bilaterally Abdomen: abdomen soft, non-tender, non-distended, no organomegaly Musculoskeletal: Pulses present and equal in all extremities, no peripheral edema Motor: no focal deficits noted Neurological: CN II-XII grossly intact, no focal motor or sensory deficits noted Skin: Intact with no visualized rashes Psych: Normal affect and mood Left toe: Left toenail fungus without any erythema or palpable tenderness. No drainage ED course: 62-year-old male with past medical history atrial fibrillation on all the appropriate medications. He presents to the emergency department for A. fib. Patient has an established diagnosis of A. fib. He initially presented to urgent care to have his toe evaluated and ended up here being evaluated for A. fib. He is not in rapid ventricular rate. His vital signs upon arrival are within acceptable limits. Heart rate is 90. Appears to be rate controlled. He is on all the correct medications. Patient denies any cardiorespiratory symptoms. He does report having some mild URI symptoms. As recommended the patient have x-ray, covered testing and basic labs performed however he refused. He preferred to be discharged follow-up with his primary care doctor or return to the emergency department if his symptoms acutely worsen. rePorts that he feels at baseline. EKG interpretation: Ventricular rate 98, A. fib, QS 96, QTC 408. , no QTC prolongation, no ST or T-wave changes noted. EKG compared to 05/25/2021 showing no changes. Overall, this EKG is unremarkable - Related Data Home Medications Medication Instructions Recorded Confirmed Acetaminophen Tab [Tylenol] 500 mg PO Q6H PRN 05/25/21 05/25/21 Previous Rx's Medication Instructions Recorded Apixaban [Eliquis] 5 mg PO BID #60 tab 05/27/21 Aspirin 81 mg PO DAILY #30 chew 05/27/21 Atorvastatin [Lipitor] 20 mg PO HS #30 tab 05/27/21 Metoprolol Tartrate [Lopressor] 50 mg PO BID #60 tab 05/27/21 Allergies Allergy/AdvReac Type Severity Reaction Status Date / Time Penicillins Allergy Rash/Hives Verified 09/05/22 17:09 tramadol AdvReac Unknown Verified 09/05/22 17:09 Review of Systems ROS Statement: Those systems with pertinent positive or pertinent negative responses have been documented in the HPI. ROS Other: All systems not noted in ROS Statement are negative. Past Medical History Past Medical History: Cancer, Hypertension Additional Past Medical History / Comment(s): cellulitis History of Any Multi-Drug Resistant Organisms: None Reported Past Surgical History: Hernia Repair Past Anesthesia/Blood Transfusion Reactions: No Reported Reaction Past Psychological History: No Psychological Hx Reported Smoking Status: Current every day smoker Past Alcohol Use History: Rare Past Drug Use History: None Reported General Exam Limitations: no limitations Course Vital Signs 09/05/22 17:01 Pulse Rate 90 Respiratory 18 Rate Blood Pressure 161/98 O2 Sat by Pulse 98 Oximetry Disposition Clinical Impression: Atrial fibrillation Disposition: HOME SELF-CARE Condition: Good Instructions (If sedation given, give patient instructions): A-fib (Atrial Fibrillation) (ED) Is patient prescribed a controlled substance at d/c from ED?: No Referrals: Archana Bonilla MD [Primary Care Provider] - 1-2 days Time of Disposition: 17:22
== END 2022-09-05 17:43 | disposition home or self-care (01) ==
LOC: EC 16:56
DX: I48.91 Unspecified atrial fibrillation (principal); F17.200 Nicotine dependence, unspecified, uncomplicated; I10 Essential (primary) hypertension; Z88.0 Allergy status to penicillin; Z88.8 Allergy status to other drugs, medicaments and biological substances; Z79.01 Long term (current) use of anticoagulants; Z79.82 Long term (current) use of aspirin
CPT/HCPCS: 93005; 99284

== ENCOUNTER → 2024-09-24 | Outpatient (CLI) | payer OTHER ==
--- NOTE | 2024-09-24 15:31 | US ---
EXAMINATION TYPE: US kidneys/renal and bladder DATE OF EXAM: 09/24/2024 COMPARISON: NONE CLINICAL INDICATION: Male, 64 years old with history of N18.31 CHRONIC KIDNEY DISEASE, STAGE 3A; CKD 3 TECHNIQUE: Grayscale imaging of the bilateral kidneys and urinary bladder: FINDINGS: EXAM MEASUREMENTS: Right Kidney: 11.8 x 4.6 x 3.3 cm Left Kidney: 11 x 4.9 x 3.9 cm Right Kidney: No hydronephrosis or masses seen Left Kidney: No hydronephrosis or masses seen Bladder: Not fully distended Bilateral Jets seen: yes There is no evidence for hydronephrosis at this point in time. No nephrolithiasis is seen. No trev s are identified. The urinary bladder is anechoic. IMPRESSION: No evidence for obstructive uropathy or calculus. [facility], , 09/24/2024 3:28 PM
== END | disposition home or self-care (01) ==
LOC: RADUSWWP 14:21
PROVIDERS: ATTEND Family Medicine
DX: N18.31 Chronic kidney disease, stage 3a (principal)
CPT/HCPCS: 76770